=== PATIENT | male | born 1950 | race Caucasian/White ===

== ENCOUNTER 2016-10-09 19:37 | Inpatient (IN) | payer OTHER, MEDICARE ==
[~2016-10-09] VITALS: Ht 188 cm; Wt 92.1 kg
[2016-10-10] MEDS ORDERED: LO-DOSE ASPIRIN81 MG PO (00:04)
[2016-10-10] MEDS ORDERED: RANEXA1000 MG PO (00:05)
[2016-10-10] MEDS ORDERED: BUSPIRONE HCL15 MG PO (00:05)
[2016-10-10] MEDS ORDERED: MECLIZINE HCL25 MG PO (00:06)
[2016-10-10] MEDS ORDERED: METHOTREXA25 MG/1 ML SQ (00:10)
[2016-10-10] MEDS ORDERED: NEURONTIN 400400 MG PO (00:11)
[2016-10-10] MEDS ORDERED: KLONOPIN0.5 MG PO (00:12)
[2016-10-10] MEDS ORDERED: LORTAB 5-325 M1 EACH PO ×2 (00:13→00:14)
[2016-10-10] MEDS ORDERED: ZOLOFT50 MG PO (00:15)
[2016-10-10] MEDS ORDERED: FOLIC ACID 1 MG1 MG PO (00:15)
[2016-10-10] MEDS ORDERED: SIMVASTATIN40 MG PO (00:16)
[2016-10-10 05:41] LABS: HEMOGLOBIN 13.3 gm/dl (14.0-17.5); RED BLOOD COUNT 3.95 M/UL (4.20-5.50); WHITE BLOOD COUNT 6.4 K/UL (4.5-11.0)
[2016-10-10 06:10] LABS: BUN/CREATININE RATIO 14 (0-10)
[2016-10-11 04:22] LABS: HEMOGLOBIN 13.3 gm/dl (14.0-17.5); RED BLOOD COUNT 3.9 M/UL (4.20-5.50); WHITE BLOOD COUNT 7.9 K/UL (4.5-11.0)
[2016-10-11 04:40] LABS: BUN/CREATININE RATIO 18 (0-10)
[2016-10-11] MEDS ORDERED: BRILINTA90 MG PO (11:09)
== END 2016-10-11 12:22 | disposition home or self-care (01) | DRG 247 ==
LOC: PROG CARE 21:53
PROVIDERS: Family Medicine; Internal Medicine Interventional Cardiology; ADMIT Internal Medicine
PROC: B2111ZZ Fluoroscopy of Multiple Coronary Arteries using Low Osmolar Contrast (ICD-10-PCS; principal; 2016-10-10)
PROC: B2131ZZ Fluoroscopy of Multiple Coronary Artery Bypass Grafts using Low Osmolar Contrast (ICD-10-PCS; principal; 2016-10-10)
PROC: 027034Z Dilation of Coronary Artery, One Artery with Drug-eluting Intraluminal Device, Percutaneous Approach (ICD-10-PCS; principal; 2016-10-10)
DX: I21.4 Non-ST elevation (NSTEMI) myocardial infarction (principal); T82.855A Stenosis of coronary artery stent, initial encounter; I47.2 Ventricular tachycardia; I10 Essential (primary) hypertension; E78.5 Hyperlipidemia, unspecified; I25.110 Atherosclerotic heart disease of native coronary artery with unstable angina pectoris; F41.9 Anxiety disorder, unspecified; G89.29 Other chronic pain; M54.9 Dorsalgia, unspecified; Z87.891 Personal history of nicotine dependence; Z95.1 Presence of aortocoronary bypass graft; Z88.8 Allergy status to other drugs, medicaments and biological substances; Z79.891 Long term (current) use of opiate analgesic; Z79.82 Long term (current) use of aspirin; Z79.52 Long term (current) use of systemic steroids; Z79.899 Other long term (current) drug therapy; Z82.49 Family history of ischemic heart disease and other diseases of the circulatory system
CPT/HCPCS: 36415; 80048; 80061; 82550; 82553; 83036; 83735; 84132; 84484; 85027; 85347; 85610; 85730; 93005; C1725; C1769; C1874; C1887; C9600; J0461; J0583; J1644; J2250; J2270; J3010; J7030; J7050; Q0162; Q0163; Q9963